=== PATIENT | male | born 1935 | race Caucasian/White ===

== ENCOUNTER 2018-03-27 11:38 | Observation (INO) ==
[2018-03-27] MEDS ORDERED: Isovue-370 500 ML INFUS..BTL IV ONE (12:28)
--- NOTE | 2018-03-27 12:40 | Emergency Department Note ---
Disposition Clinical Impression: Abdominal pain Qualifiers: Abdominal location: generalized Qualified Code(s): R10.84 - Generalized abdominal pain Disposition: Admitted As Inpatient Referrals: Kelvin Gregg DO [Primary Care Provider] - Forms: ED Satisfaction Letter, Work/School Release General Adult HPI - General Chief complaint: ED Abdominal Pain Stated complaint: ABD Pain Time Seen by Provider: 03/27/18 11:51 - History of Present Illness Pain Scale: 6 - Related Data Home Medications Medication Instructions Recorded Confirmed Acetaminophen [Tylenol] 500 mg PO Q6HR 02/21/18 03/27/18 Apixaban [Eliquis] 2.5 mg PO BID 02/21/18 03/27/18 Ascorbic Acid [Vitamin C] 500 mg PO DAILY 02/21/18 03/27/18 Atorvastatin [Lipitor] 40 mg PO HS 02/21/18 03/27/18 Carvedilol [Coreg] 12.5 mg PO BID 02/21/18 03/27/18 Clopidogrel [Plavix] 75 mg PO DAILY 02/21/18 03/27/18 Cyclobenzaprine HCl 5 mg PO Q6H PRN 02/21/18 03/27/18 FLUoxetine HCl [Fluoxetine HCl] 40 mg PO QAM 02/21/18 03/27/18 FLUoxetine HCl [PROzac] 20 mg PO 1200 02/21/18 03/27/18 Furosemide [Lasix] 40 mg PO DAILY 02/21/18 03/27/18 Isosorbide DInitrate [Isosorbide 30 mg PO BID 02/21/18 03/27/18 Dinitrate] L.acidoph,Paracasei, B.lactis 1 cap PO DAILY 02/21/18 03/27/18 [Probiotic] Magnesium l-Lactate [Mag-Tab Sr] 84 mg PO BID 02/21/18 03/27/18 Methylphenidate HCl [Ritalin] 5 mg PO 1200 02/21/18 03/27/18 Methylphenidate HCl [Ritalin] 10 mg PO QAM 02/21/18 03/27/18 Multivitamin [One Daily 1 each PO DAILY 02/21/18 03/27/18 Multivitamin] Nitroglycerin [Nitrostat] 0.4 mg SL Q5MIN 02/21/18 03/27/18 Omeprazole [PriLOSEC] 20 mg PO BID 02/21/18 03/27/18 Potassium Chloride 20 meq PO BID 02/21/18 03/27/18 Quetiapine Fumarate [SEROquel] 100 mg PO HS 02/21/18 03/27/18 clonazePAM [Clonazepam] 0.5 mg PO QID 02/21/18 03/27/18 metOLazone [Zaroxolyn] 5 mg PO DAILY 02/21/18 03/27/18 Diltiazem CD (24hr) [Cardizem CD] 120 mg PO BID 03/27/18 03/27/18 Allergies Allergy/AdvReac Type Severity Reaction Status Date / Time No Known Drug Allergies Allergy none Verified 03/21/18 10:36 Past Medical History - Social History Smoking Status: Never smoker Smokeless Tobacco Status: No Alcohol use: Reports: none Drug use: Reports: none Course Vital Signs Temperature 97.9 F 03/27/18 11:43 Pulse Rate 82 03/27/18 11:43 Respiratory Rate 18 03/27/18 11:43 Blood Pressure 119/85 03/27/18 11:43 O2 Sat by Pulse Oximetry 94 03/27/18 11:43 Temperature 97.9 F 03/27/18 12:54 Pulse Rate 74 03/27/18 15:26 Respiratory Rate 16 03/27/18 15:26 Blood Pressure 138/88 03/27/18 15:26 O2 Sat by Pulse Oximetry 96 03/27/18 15:26 Oxygen Delivery Oxygen Delivery Room Air Medical Decision Making - Lab Data Result diagrams: 03/27/18 12:40 03/27/18 12:40 Lab Results 03/27/18 03/27/18 03/27/18 Range/Units 11:51 12:30 12:40 WBC 8.8 (4.3-11.1) K/mcL RBC 4.22 (4.19-5.50) M/mcL Hgb 10.6 L (12.9-16.9) g/dL Hct 34.4 L (37.5-50.1) % MCV 81.5 L (83.0-100.0) fL MCH 25.1 L (28.0-33.3) pg MCHC 30.8 L (31.6-35.5) g/dL RDW 18.3 H (11.5-14.5) % Plt Count 251 (140-400) K/mcL MPV 9.6 (9.4-12.4) fL Immature Gran % 0.5 (0-4) % Seg Neutrophils % 66.6 % Lymphocytes % 13.2 % Monocytes % 14.4 % Eosinophils % 4.8 % Basophils % 0.5 % Neutrophils # 5.9 (1.6-8.9) K/mcL Lymphocytes # 1.2 (0.6-4.6) K/mcL Monocytes # 1.3 (0.0-1.3) K/mcL Eosinophils # 0.4 (0.0-0.6) K/mcL Basophils # 0.0 (0.0-0.2) K/mcL Sodium (136-145) mEq/L Potassium (3.5-5.1) mEq/L Chloride (98-107) mEq/L Carbon Dioxide (23-29) mEq/L BUN (8-23) mg/dL Creatinine (0.70-1.30) mg/dL Est GFR ( Amer) (> 60) Est GFR (Non-Af Amer) (> 60) BUN/Creatinine Ratio (6-26) Glucose (70-105) mg/dL Calculated Osmolality (280-300) Calcium (8.6-10.3) mg/dL Total Bilirubin (0.3-1.0) mg/dL Direct Bilirubin (0.0-0.2) mg/dL Indirect Bilirubin (0.0-1.2) mg/dL AST (13-39) Units/L ALT (7-52) Units/L Alkaline Phosphatase (34-104) Units/L Serum Total Protein (6.4-8.9) g/dL Albumin (3.5-5.7) g/dL Globulin (2.4-3.5) g/dL Albumin/Globulin Ratio (1.1-2.2) Lipase (11-82) Units/L Urine Color Yellow (Yellow) Urine Clarity Clear (Clear) Urine pH 7.0 (5.0-8.0) pH Units Ur Specific [place] 1.009 L (1.010-1.025) Urine Protein Negative (Neg-Trace) mg/dL Urine Glucose (UA) Normal (Normal) mg/dL Urine Ketones Negative (Negative) mg/dL Urine Blood Negative (Negative) Urine Nitrite Negative (Negative) Urine Bilirubin Negative (Negative) Urine Urobilinogen Normal (Normal) mg/dL Ur Leukocyte Esterase Negative (Negative) Ur Culture Indicated? NO (NO) Stool Occult Bld Scrn Negative (Negative) 03/27/18 Range/Units 12:40 WBC (4.3-11.1) K/mcL RBC (4.19-5.50) M/mcL Hgb (12.9-16.9) g/dL Hct (37.5-50.1) % MCV (83.0-100.0) fL MCH (28.0-33.3) pg MCHC (31.6-35.5) g/dL RDW (11.5-14.5) % Plt Count (140-400) K/mcL MPV (9.4-12.4) fL Immature Gran % (0-4) % Seg Neutrophils % % Lymphocytes % % Monocytes % % Eosinophils % % Basophils % % Neutrophils # (1.6-8.9) K/mcL Lymphocytes # (0.6-4.6) K/mcL Monocytes # (0.0-1.3) K/mcL Eosinophils # (0.0-0.6) K/mcL Basophils # (0.0-0.2) K/mcL Sodium 140 (136-145) mEq/L Potassium 4.2 (3.5-5.1) mEq/L Chloride 106 (98-107) mEq/L Carbon Dioxide 28 (23-29) mEq/L BUN 27 H (8-23) mg/dL Creatinine 1.17 (0.70-1.30) mg/dL Est GFR ( Amer) > 60 (> 60) Est GFR (Non-Af Amer) 60 (> 60) BUN/Creatinine Ratio 23 (6-26) Glucose 89 (70-105) mg/dL Calculated Osmolality 295 (280-300) Calcium 9.4 (8.6-10.3) mg/dL Total Bilirubin 0.3 (0.3-1.0) mg/dL Direct Bilirubin 0.1 (0.0-0.2) mg/dL Indirect Bilirubin 0.2 (0.0-1.2) mg/dL AST 9 L (13-39) Units/L ALT 5 L (7-52) Units/L Alkaline Phosphatase 81 (34-104) Units/L Serum Total Protein 6.2 L (6.4-8.9) g/dL Albumin 3.7 (3.5-5.7) g/dL Globulin 2.5 (2.4-3.5) g/dL Albumin/Globulin Ratio 1.5 (1.1-2.2) Lipase 40 (11-82) Units/L Urine Color (Yellow) Urine Clarity (Clear) Urine pH (5.0-8.0) pH Units Ur Specific [place] (1.010-1.025) Urine Protein (Neg-Trace) mg/dL Urine Glucose (UA) (Normal) mg/dL Urine Ketones (Negative) mg/dL Urine Blood (Negative) Urine Nitrite (Negative) Urine Bilirubin (Negative) Urine Urobilinogen (Normal) mg/dL Ur Leukocyte Esterase (Negative) Ur Culture Indicated? (NO) Stool Occult Bld Scrn (Negative) Attestation Statement - Attestation Attestation: I examined this patient and my medical decision-making was reviewed with the Resident Physician. I agree with the documented findings, disposition and treatment plan as described except to the extent set forth below. Patient presents to the ED with chief complaint of abdominal bloating. He is brought in by a caregiver and daughter. He has been having bloating for several weeks. 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 His oncologist did not believe it was from that. He recommended to see GI. Patient has a history of cholecystitis with cholecystectomy in September. He had biliary duct dilatation on his CT scan. On examination he has not any distress. His abdomen is soft. Bowel sounds are high-pitched but present. Lungs clear. He is in no distress. Plan. We will repeat CT scan. There is no ascites noted on the other scan. Patient states he is unable to button his pants now. Reevaluate following CT. CT scan unchanged from last. Labs unremarkable. Patient will be admitted.
[2018-03-27 12:54] LABS: Basophils % 0.5 %; Eosinophils # 0.4 K/mcL (0.0-0.6); Eosinophils % 4.8 %; Hematocrit 34.4 % (37.5-50.1); Hemoglobin 10.6 g/dL (12.9-16.9); Immature Granulocytes % 0.5 % (0-4); Lymphocytes # 1.2 K/mcL (0.6-4.6); Lymphocytes % 13.2 %; Mean Corpuscular HGB Conc 30.8 g/dL (31.6-35.5); Mean Corpuscular Hemoglobin 25.1 pg (28.0-33.3); Mean Corpuscular Volume 81.5 fL (83.0-100.0); Mean Platelet Volume 9.6 fL (9.4-12.4); Monocytes # 1.3 K/mcL (0.0-1.3); Monocytes % 14.4 %; Neutrophils # 5.9 K/mcL (1.6-8.9); Platelet Count 251 K/mcL (140-400); Red Blood Count 4.22 M/mcL (4.19-5.50); Red Cell Distribution Width 18.3 % (11.5-14.5); Segmented Neutrophils % 66.6 %
[2018-03-27 13:14] LABS: Alanine Aminotransferase 5 Units/L (7-52); Albumin 3.7 g/dL (3.5-5.7); Albumin/Globulin Ratio 1.5 (1.1-2.2); Alkaline Phosphatase 81 Units/L (34-104); Aspartate Amino Transferase 9 Units/L (13-39); BUN/Creatinine Ratio 23 (6-26); Bilirubin,Direct 0.1 mg/dL (0.0-0.2); Bilirubin,Indirect 0.2 mg/dL (0.0-1.2); Bilirubin,Total 0.3 mg/dL (0.3-1.0); Blood Urea Nitrogen 27 mg/dL (8-23); Calcium 9.4 mg/dL (8.6-10.3); Carbon Dioxide 28 mEq/L (23-29); Chloride 106 mEq/L (98-107); Globulin 2.5 g/dL (2.4-3.5); Glucose 89 mg/dL (70-105); Lipase 40 Units/L (11-82); Osmolality,Calculated 295 (280-300); Potassium 4.2 mEq/L (3.5-5.1); Sodium 140 mEq/L (136-145); Total Protein 6.2 g/dL (6.4-8.9); eGFR For African Americans > 60 (> 60); eGFR For Non-African Americans 60 (> 60)
--- NOTE | 2018-03-27 14:02 | Emergency Department Note ---
Disposition Clinical Impression: History of kidney cancer Abdominal pain Qualifiers: Abdominal location: generalized Qualified Code(s): R10.84 - Generalized abdominal pain Disposition: Admitted As Inpatient Condition: Fair Referrals: Kelvin Gregg DO [Primary Care Provider] - Time of Disposition: 17:43 Abdominal Pain HPI - General Chief Complaint: ED Abdominal Pain Stated Complaint: ABD Pain Time Seen by Provider: 03/27/18 11:51 Nursing Notes Reviewed: Yes Vital Signs Reviewed: Yes - History of Present Illness HPI Narrative: Several month history of abdominal discomfort. Describes it as a burning sensation. No radiation. Also complaining of a 2 day history of abdominal distention. Denies any nausea or vomiting. Pain Scale: 6 - Related Data Home Medications Medication Instructions Recorded Confirmed Acetaminophen [Tylenol] 500 mg PO Q6HR 02/21/18 03/27/18 Apixaban [Eliquis] 2.5 mg PO BID 02/21/18 03/27/18 Ascorbic Acid [Vitamin C] 500 mg PO DAILY 02/21/18 03/27/18 Atorvastatin [Lipitor] 40 mg PO HS 02/21/18 03/27/18 Carvedilol [Coreg] 12.5 mg PO BID 02/21/18 03/27/18 Clopidogrel [Plavix] 75 mg PO DAILY 02/21/18 03/27/18 Cyclobenzaprine HCl 5 mg PO Q6H PRN 02/21/18 03/27/18 FLUoxetine HCl [Fluoxetine HCl] 40 mg PO QAM 02/21/18 03/27/18 FLUoxetine HCl [PROzac] 20 mg PO 1200 02/21/18 03/27/18 Furosemide [Lasix] 40 mg PO DAILY 02/21/18 03/27/18 Isosorbide DInitrate [Isosorbide 30 mg PO BID 02/21/18 03/27/18 Dinitrate] L.acidoph,Paracasei, B.lactis 1 cap PO DAILY 02/21/18 03/27/18 [Probiotic] Magnesium l-Lactate [Mag-Tab Sr] 84 mg PO BID 02/21/18 03/27/18 Methylphenidate HCl [Ritalin] 5 mg PO 1200 02/21/18 03/27/18 Methylphenidate HCl [Ritalin] 10 mg PO QAM 02/21/18 03/27/18 Multivitamin [One Daily 1 each PO DAILY 02/21/18 03/27/18 Multivitamin] Nitroglycerin [Nitrostat] 0.4 mg SL Q5MIN 02/21/18 03/27/18 Omeprazole [PriLOSEC] 20 mg PO BID 02/21/18 03/27/18 Potassium Chloride 20 meq PO BID 02/21/18 03/27/18 Quetiapine Fumarate [SEROquel] 100 mg PO HS 02/21/18 03/27/18 clonazePAM [Clonazepam] 0.5 mg PO QID 02/21/18 03/27/18 metOLazone [Zaroxolyn] 5 mg PO DAILY 02/21/18 03/27/18 Diltiazem CD (24hr) [Cardizem CD] 120 mg PO BID 03/27/18 03/27/18 Allergies Allergy/AdvReac Type Severity Reaction Status Date / Time No Known Drug Allergies Allergy none Verified 03/21/18 10:36 All systems ED: reviewed and negative except as stated. Constitutional: Denies: fever, chills ENT ED: Denies: congestion Cardiovascular: Denies: chest pain, syncope Respiratory: Reports: dyspnea (Stated from having to take deep breaths due to his abdominal distention.). Denies: cough Gastrointestinal: Reports: abdominal pain (Burning sensation), melena (For the past 2-3 days. Is on eliquis.). Denies: nausea, vomiting, diarrhea, hematemesis, hematochezia Genitourinary: Reports: dysuria (Burning). Denies: urgency, frequency, hematuria Musculoskeletal: Denies: back pain, neck pain Abdominal Pain PMH - Past Medical History Medical history: Reports: cancer Male Surgical History: Reports: hip replacement, IVC Filter, knee replacement - Social History Smoking status: Never smoker Alcohol use: Reports: none Drug use: Reports: none Physical Exam - General Limitations: no limitations General appearance: alert, in no apparent distress - Head Head exam: atraumatic, normocephalic, normal inspection - Eye Eye exam: Present: normal appearance, PERRL, EOMI - ENT ENT exam: normal exam, normal oropharynx, mucous membranes moist - Neck Neck exam: Present: normal inspection, full ROM, trachea midline - Chest Chest inspection: Present: normal inspection, symmetric chest wall rise - Respiratory Respiratory exam: Present: normal lung sounds bilaterally. Absent: respiratory distress, accessory muscle use - Cardiovascular Cardiovascular exam: Present: regular rate, normal rhythm, normal heart sounds - Abdominal Exam Abdominal exam: Present: soft, distention (Mild essential no fluid wave. Not taut). Absent: tenderness, organomegaly, Odom's sign, Rovsing's sign, tenderness at McBurney's Point, mass - Extremities Exam Extremities exam: Present: normal inspection, full ROM, normal capillary refill. Absent: tenderness, pedal edema - Neurological Exam Neurological exam: Present: alert, oriented X3 - Psychiatric Psychiatric exam: Present: normal affect, normal mood - Skin Skin exam: Present: warm, dry, intact, normal color. Absent: rash, cyanosis, diaphoresis Course Course Narrative: No patient presenting to emergency department complaining of a one-month history of abdominal pain. States it has been getting significantly worse. Also complaining of abdominal distention. He is refusing pain medication at this time. States that does have a history of renal cell carcinoma approximately 5-6 years ago. Recently had a CT of his abdomen due to the pain and was told that he had some lymph nodes that were concerned for metastasis. He is seeing oncology for this at this time. Patient does have some hypodense lesions in his liver. Several areas of concern for metastasis on his CT. I discussed this with oncology. They state they will follow him while here. We will admit patient to the hospital here he has precluded as well in his CT. Liver enzymes are not elevated. He is refusing pain medication at this time. States that they make him feel funny. - Consultations Consultation #1: Sierra GLORIA from oncology states that she will look over the Pt findings and offer consultation. Time: 16:19 Consultation #2: Dr Monet accepted Pt in stable condition. Time: 17:04 Vital Signs Temperature 97.9 F 03/27/18 11:43 Pulse Rate 82 03/27/18 11:43 Respiratory Rate 18 03/27/18 11:43 Blood Pressure 119/85 03/27/18 11:43 O2 Sat by Pulse Oximetry 94 03/27/18 11:43 Temperature 97.9 F 03/27/18 12:54 Pulse Rate 76 03/27/18 17:10 Respiratory Rate 18 03/27/18 17:10 Blood Pressure 145/95 03/27/18 17:10 O2 Sat by Pulse Oximetry 93 03/27/18 17:10 Oxygen Delivery Oxygen Delivery Room Air Abdominal Pain - Medical Records Medical records reviewed: Yes I reviewed the patient's medical records. - Lab Data Lab results reviewed: Yes I reviewed the patient's lab results. Result diagrams: 03/27/18 12:40 03/27/18 12:40 Lab Results 03/27/18 03/27/18 03/27/18 Range/Units 11:51 12:30 12:40 WBC 8.8 (4.3-11.1) K/mcL RBC 4.22 (4.19-5.50) M/mcL Hgb 10.6 L (12.9-16.9) g/dL Hct 34.4 L (37.5-50.1) % MCV 81.5 L (83.0-100.0) fL MCH 25.1 L (28.0-33.3) pg MCHC 30.8 L (31.6-35.5) g/dL RDW 18.3 H (11.5-14.5) % Plt Count 251 (140-400) K/mcL MPV 9.6 (9.4-12.4) fL Immature Gran % 0.5 (0-4) % Seg Neutrophils % 66.6 % Lymphocytes % 13.2 % Monocytes % 14.4 % Eosinophils % 4.8 % Basophils % 0.5 % Neutrophils # 5.9 (1.6-8.9) K/mcL Lymphocytes # 1.2 (0.6-4.6) K/mcL Monocytes # 1.3 (0.0-1.3) K/mcL Eosinophils # 0.4 (0.0-0.6) K/mcL Basophils # 0.0 (0.0-0.2) K/mcL Sodium (136-145) mEq/L Potassium (3.5-5.1) mEq/L Chloride (98-107) mEq/L Carbon Dioxide (23-29) mEq/L BUN (8-23) mg/dL Creatinine (0.70-1.30) mg/dL Est GFR ( Amer) (> 60) Est GFR (Non-Af Amer) (> 60) BUN/Creatinine Ratio (6-26) Glucose (70-105) mg/dL Calculated Osmolality (280-300) Calcium (8.6-10.3) mg/dL Total Bilirubin (0.3-1.0) mg/dL Direct Bilirubin (0.0-0.2) mg/dL Indirect Bilirubin (0.0-1.2) mg/dL AST (13-39) Units/L ALT (7-52) Units/L Alkaline Phosphatase (34-104) Units/L Serum Total Protein (6.4-8.9) g/dL Albumin (3.5-5.7) g/dL Globulin (2.4-3.5) g/dL Albumin/Globulin Ratio (1.1-2.2) Lipase (11-82) Units/L Urine Color Yellow (Yellow) Urine Clarity Clear (Clear) Urine pH 7.0 (5.0-8.0) pH Units Ur Specific [place] 1.009 L (1.010-1.025) Urine Protein Negative (Neg-Trace) mg/dL Urine Glucose (UA) Normal (Normal) mg/dL Urine Ketones Negative (Negative) mg/dL Urine Blood Negative (Negative) Urine Nitrite Negative (Negative) Urine Bilirubin Negative (Negative) Urine Urobilinogen Normal (Normal) mg/dL Ur Leukocyte Esterase Negative (Negative) Ur Culture Indicated? NO (NO) Stool Occult Bld Scrn Negative (Negative) 03/27/18 Range/Units 12:40 WBC (4.3-11.1) K/mcL RBC (4.19-5.50) M/mcL Hgb (12.9-16.9) g/dL Hct (37.5-50.1) % MCV (83.0-100.0) fL MCH (28.0-33.3) pg MCHC (31.6-35.5) g/dL RDW (11.5-14.5) % Plt Count (140-400) K/mcL MPV (9.4-12.4) fL Immature Gran % (0-4) % Seg Neutrophils % % Lymphocytes % % Monocytes % % Eosinophils % % Basophils % % Neutrophils # (1.6-8.9) K/mcL Lymphocytes # (0.6-4.6) K/mcL Monocytes # (0.0-1.3) K/mcL Eosinophils # (0.0-0.6) K/mcL Basophils # (0.0-0.2) K/mcL Sodium 140 (136-145) mEq/L Potassium 4.2 (3.5-5.1) mEq/L Chloride 106 (98-107) mEq/L Carbon Dioxide 28 (23-29) mEq/L BUN 27 H (8-23) mg/dL Creatinine 1.17 (0.70-1.30) mg/dL Est GFR ( Amer) > 60 (> 60) Est GFR (Non-Af Amer) 60 (> 60) BUN/Creatinine Ratio 23 (6-26) Glucose 89 (70-105) mg/dL Calculated Osmolality 295 (280-300) Calcium 9.4 (8.6-10.3) mg/dL Total Bilirubin 0.3 (0.3-1.0) mg/dL Direct Bilirubin 0.1 (0.0-0.2) mg/dL Indirect Bilirubin 0.2 (0.0-1.2) mg/dL AST 9 L (13-39) Units/L ALT 5 L (7-52) Units/L Alkaline Phosphatase 81 (34-104) Units/L Serum Total Protein 6.2 L (6.4-8.9) g/dL Albumin 3.7 (3.5-5.7) g/dL Globulin 2.5 (2.4-3.5) g/dL Albumin/Globulin Ratio 1.5 (1.1-2.2) Lipase 40 (11-82) Units/L Urine Color (Yellow) Urine Clarity (Clear) Urine pH (5.0-8.0) pH Units Ur Specific [place] (1.010-1.025) Urine Protein (Neg-Trace) mg/dL Urine Glucose (UA) (Normal) mg/dL Urine Ketones (Negative) mg/dL Urine Blood (Negative) Urine Nitrite (Negative) Urine Bilirubin (Negative) Urine Urobilinogen (Normal) mg/dL Ur Leukocyte Esterase (Negative) Ur Culture Indicated? (NO) Stool Occult Bld Scrn (Negative) - Radiology Data Radiology results reviewed: Yes I reviewed the patient's radiology results. Abdomen/Pelvis CT 03/27/18 12:27 IMPRESSION: No acute intrathoracic nor abdominopelvic abnormality. Trace free fluid in the pelvis. Colonic diverticulosis without radiographic evidence of active inflammation. Stable enlarged aortocaval and periceliac lymph nodes D/ / Coty Claudio Cha, MD / Coty Claudio Cha, MD Interpreting Provider: Coty Claudio Cha, MD Chest CTA 03/27/18 12:28 IMPRESSION: No acute intrathoracic nor abdominopelvic abnormality. Trace free fluid in the pelvis. Colonic diverticulosis without radiographic evidence of active inflammation. Stable enlarged aortocaval and periceliac lymph nodes D/ / Coty Claudio Cha, MD / Coty Claudio Cha, MD Interpreting Provider: Coty Claudio Cha, MD - EKG Data EKG attestation: Yes I reviewed and interpreted this EKG. EKG results narrative: Normal sinus rhythm at a rate of 79. ND interval is 174. QRS durationis 98. QT is 373. QTC is 407. No signs of acute ischemia. No previous EKG to compare to.
[2018-03-27 14:04] LABS: Bilirubin,Urine Negative (Negative); Blood,Urine Negative (Negative); Clarity,Urine Clear (Clear); Color,Urine Yellow (Yellow); Glucose,Urine (UA) Normal (Normal); Ketones,Urine Negative (Negative); Leukocyte Esterase,Urine Negative (Negative); Nitrite,Urine Negative (Negative); Protein,Urine Negative (Neg-Trace); Specific Gravity,Urine 1.009 (1.010-1.025); Urobilinogen,Urine Normal (Normal)
--- NOTE | 2018-03-27 17:50 | Internal Med History&Physical ---
Date of Encounter: 03/27/18 Time of Encounter: 17:45 Internal Medicine - H&P: HPI Chief complaint: abd pain Admitted From: Emergency Dept Plans for Post Hospital Care: Home History of present illness: Mr. Leger is a 83 year old male Patient with history of renal cell carcinoma about 6 years ago has developed recurrence with lymph node metastases. Followed by oncology patient also has history of chronic back pain, atrial fibrillation, hypertension, pulmonary embolism with IVC filter. Patient has has chronic abdominal pain for more than a month with some bloating was seen by oncology . concern the patient may need a GI evaluation since it might not be related to the renal cell carcinoma recurrence. Repeat CT of the abdomen in the emergency room was unchanged from previous recent studies CT of the abdomen has some diverticulosis no diverticulitis patient will be admitted will consult GI for further evaluation. Exam is unremarkable abdomen is soft mild tenderness. Patient has had cholecystectomy Past Med Surg Social Fam HX - Past Medical History Medical history: cancer, hyperlipidemia, hypertension - Past Surgical History Surgical History: cholecystectomy - Social History Smoking Status: Never smoker Smokeless Tobacco Status: No Alcohol use: none Drug use: none Internal Medicine - H&P: Meds Acetaminophen [Tylenol] 500 mg PO Q6HR 02/21/18 [History] Apixaban [Eliquis] 2.5 mg PO BID 02/21/18 [History] Ascorbic Acid [Vitamin C] 500 mg PO DAILY 02/21/18 [History] Atorvastatin [Lipitor] 40 mg PO HS 02/21/18 [History] Carvedilol [Coreg] 12.5 mg PO BID 02/21/18 [History] Clopidogrel [Plavix] 75 mg PO DAILY 02/21/18 [History] Cyclobenzaprine HCl 5 mg PO Q6H PRN 02/21/18 [History] FLUoxetine HCl [Fluoxetine HCl] 40 mg PO QAM 02/21/18 [History] FLUoxetine HCl [PROzac] 20 mg PO 1200 02/21/18 [History] Furosemide [Lasix] 40 mg PO DAILY 02/21/18 [History] Isosorbide DInitrate [Isosorbide Dinitrate] 30 mg PO BID 02/21/18 [History] L.acidoph,Paracasei, B.lactis [Probiotic] 1 cap PO DAILY 02/21/18 [History] Magnesium l-Lactate [Mag-Tab Sr] 84 mg PO BID 02/21/18 [History] Methylphenidate HCl [Ritalin] 5 mg PO 1200 02/21/18 [History] Methylphenidate HCl [Ritalin] 10 mg PO QAM 02/21/18 [History] Multivitamin [One Daily Multivitamin] 1 each PO DAILY 02/21/18 [History] Nitroglycerin [Nitrostat] 0.4 mg SL Q5MIN 02/21/18 [History] Omeprazole [PriLOSEC] 20 mg PO BID 02/21/18 [History] Potassium Chloride 20 meq PO BID 02/21/18 [History] Quetiapine Fumarate [SEROquel] 100 mg PO HS 02/21/18 [History] clonazePAM [Clonazepam] 0.5 mg PO QID 02/21/18 [History] metOLazone [Zaroxolyn] 5 mg PO DAILY 02/21/18 [History] Diltiazem CD (24hr) [Cardizem CD] 120 mg PO BID 03/27/18 [History] 3 Allergy/AdvReac Type Severity Reaction Status Date / Time No Known Drug Allergies Allergy none Verified 03/21/18 10:36 All Systems PM: A 10-system review of systems was performed and is negative for pertinent findings except as documented above in the HPI. - Constitutional Vitals: Temp Pulse Resp BP Pulse Ox 97.9 F 76 18 145/95 93 03/27/18 12:54 03/27/18 17:10 03/27/18 17:10 03/27/18 17:10 03/27/18 17:10 - Head Head exam: Present: atraumatic, normocephalic - Eye Eye exam: Present: PERRL, conjuntiva pink, sclera anicteric Pupils: Present: PERRL - Neck Neck exam general surgery: Present: supple, trachea midline. Absent: lymphadenopathy - Respiratory Respiratory exam: Present: CTAB. Absent: accessory muscle use, rales, rhonchi, wheezes - Cardiovascular Cardiovascular exam: Present: RRR, +S1, +S2. Absent: diastolic murmur, gallop, rubs, systolic murmur - GI/Abdominal GI/Abdominal exam: Present: distended, soft, tenderness Internal Med - H&P Results - Labs CBC & Chem 7: 03/27/18 12:40 03/27/18 12:40 - Assessment and plan (1) Chronic back pain Current Visit: Yes Status: Acute Assessment and plan: Chronic resume home medication Qualifiers: Back pain location: low back pain Back pain laterality: unspecified Sciatica presence: without sciatica Qualified Code(s): M54.5 - Low back pain; G89.29 - Other chronic pain (2) HTN (hypertension) Current Visit: Yes Status: Chronic Assessment and plan: Chronic blood pressure well controlled Qualifiers: Hypertension type: essential hypertension Qualified Code(s): I10 - Essential (primary) hypertension (3) Abdominal pain Current Visit: Yes Status: Acute Assessment and plan: Generalized abdominal pain repeat CT of the abdomen unchanged from recent CT of the abdomen no diverticulitis we will consult GI for further evaluation Qualifiers: Abdominal location: generalized Qualified Code(s): R10.84 - Generalized abdominal pain (4) History of kidney cancer Current Visit: Yes Status: Acute Assessment and plan: Recurrent being followed by oncologist - Time Spent With Patient Total time spent is greater than 50% in coordination of care (as documented) at patient's floor/unit and/or counseling patient:
[2018-03-27] MEDS ORDERED: Naloxone 0.4 MG/ML INJ IVP PRN (17:55)
[2018-03-27] MEDS ORDERED: traMADol 50 MG TABLET PO PRN (17:55)
[2018-03-27] MEDS: clonazePAM 0.5 MG TABLET PO SCH (22:44)
[2018-03-27] MEDS: Diltiazem CD (24hr) 120 MG CAPSULE PO SCH (22:45)
[2018-03-27] MEDS: Apixaban 2.5 MG TABLET PO SCH (22:45)
[2018-03-27] MEDS: (Magnesium L-Lactate [Mag-Tab Sr] 84 MG) PO SCH (22:46)
[2018-03-27] MEDS: 0.9 % Sodium Chloride 1,000 ML IVC SCH (22:48)
[2018-03-28 00:50] LABS: Hematocrit 33.4 % (37.5-50.1); Hemoglobin 10.4 g/dL (12.9-16.9); Mean Corpuscular HGB Conc 31.1 g/dL (31.6-35.5); Mean Corpuscular Hemoglobin 25.1 pg (28.0-33.3); Mean Corpuscular Volume 80.7 fL (83.0-100.0); Mean Platelet Volume 9.5 fL (9.4-12.4); Platelet Count 248 K/mcL (140-400); Red Blood Count 4.14 M/mcL (4.19-5.50); Red Cell Distribution Width 18.5 % (11.5-14.5)
[2018-03-28 01:08] LABS: Alanine Aminotransferase 4 Units/L (7-52); Albumin 3.4 g/dL (3.5-5.7); Albumin/Globulin Ratio 1.4 (1.1-2.2); Alkaline Phosphatase 76 Units/L (34-104); Aspartate Amino Transferase 8 Units/L (13-39); BUN/Creatinine Ratio 21 (6-26); Bilirubin,Total 0.4 mg/dL (0.3-1.0); Blood Urea Nitrogen 23 mg/dL (8-23); Calcium 9.2 mg/dL (8.6-10.3); Carbon Dioxide 22 mEq/L (23-29); Chloride 105 mEq/L (98-107); Chol/HDL Ratio 3.1 (0-4.9); Cholesterol 122 mg/dL (< 200); Globulin 2.5 g/dL (2.4-3.5); Glucose 174 mg/dL (70-105); HDL Cholesterol 40 mg/dL (40-59); LDL Cholesterol,Calculated 44 mg/dL (0-99); Magnesium 1.7 mg/dL (1.6-2.6); Osmolality,Calculated 294 (280-300); Potassium 4.2 mEq/L (3.5-5.1); Sodium 138 mEq/L (136-145); Total Protein 5.9 g/dL (6.4-8.9); Triglycerides 191 mg/dL (< 150); eGFR For African Americans > 60 (> 60); eGFR For Non-African Americans > 60 (> 60)
[2018-03-28] MEDS: Lactobacillus 1 EACH CAP.SPRINK PO SCH (08:57)
[2018-03-28] MEDS: Methylphenidate HCl 10 MG TABLET PO SCH (08:57)
[2018-03-28] MEDS: Ascorbic Acid 500 MG TABLET PO SCH (08:57)
[2018-03-28] MEDS: Multivit/Ca/Min/Fe/FA 1 TAB TABLET PO SCH (08:57)
[2018-03-28] MEDS: metOLazone 5 MG TABLET PO SCH (08:57)
[2018-03-28] MEDS: clonazePAM 0.5 MG TABLET PO SCH ×4 (08:58→20:31)
[2018-03-28] MEDS: Diltiazem CD (24hr) 120 MG CAPSULE PO SCH ×2 (08:58→20:31)
[2018-03-28] MEDS: Apixaban 2.5 MG TABLET PO SCH ×2 (08:58→20:31)
[2018-03-28] MEDS ORDERED: Furosemide 40 MG TABLET PO SCH (09:00)
[2018-03-28] MEDS: (Magnesium L-Lactate [Mag-Tab Sr] 84 MG) PO SCH ×2 (09:01→20:31)
[2018-03-28] MEDS: 0.9 % Sodium Chloride 1,000 ML IVC SCH (10:17)
[2018-03-28] MEDS: FLUoxetine 20 MG CAPSULE PO SCH ×2 (10:25→13:03)
--- NOTE | 2018-03-28 11:33 | Gastroenterology Consult Note ---
Date of Encounter: 03/28/18 Time of Encounter: 10:30 - Assessment and plan (1) Abdominal pain Current Visit: Yes Status: Acute Assessment and plan: Continue PPI and plan for EGD today to r/o esophagitis, gastritis, duodenitis, PUD, MW tear, or AVM. Keep patinet NPO. Patient educated regarding lifestyle modifications including: (1) avoidance of foods that may precipitate reflux (eg, coffee, alcohol, chocolate, fatty foods) . (2) avoidance of acidic foods that may precipitate heartburn (eg, citrus, carbonated drinks, spicy foods). (3) adoption of behaviors that may reduce esophageal acid exposure (see weight loss, smoking cessation, raising the head of the bed, and avoiding recumbency for 2-3 hours after meals). Qualifiers: Abdominal location: generalized Qualified Code(s): R10.84 - Generalized abdominal pain (2) History of kidney cancer Current Visit: Yes Status: Acute - Time Spent With Patient Total time spent is greater than 50% in coordination of care (as documented) at patient's floor/unit and/or counseling patient: GI History of Present Illness - Data of Consult Patient: new to practice Consult date: 03/28/18 Requesting Physician: Coleen Galvez - Consult Narrative Reason for consult: Abdominal pain History of present illness: Mr. Leger is a 83 year old male with PMHx of renal cell carcinoma about 6 years ago has developed recurrence with lymph node metastases, Afib, HTN, PE with IVC filter who presented to the ED with one month history of abdominal pain. Recently had a CT A/P on 03/14 due to the pain and was told that he had some lymph nodes that were concerned for metastasis. CT A/P shows diverticulosis, 7 mm benign cyst in right hepatic dome, previously noted 9mm hypodensity in right hepatic lobe no seen. He reports epigastric pain that is not controlled. He denies fever, chills, chest pain, cough, nausea, vomiting, diarrhea, hematemsis , melena, or hematochezia. Procedures: None NSAIDs: None Anticoagulation: Plavix, Eliquis Past Med Surg Social Fam HX - Past Medical History Medical history: cancer, hyperlipidemia, hypertension - Past Surgical History Surgical History: cholecystectomy - Social History Smoking Status: Never smoker Smokeless Tobacco Status: No Alcohol use: none Drug use: none - Family History Father Living Status: Hx Family Neurologic Disorders: Yes (Stroke) Brother Hx Family Cancer: Yes (Prostate) - Gastrointestinal Gastrointestinal: Present: as per HPI - Constitutional Constitutional: as per HPI - EENT Eyes: as per HPI Ears: Present: as per HPI Nose, mouth and throat: Present: as per HPI - Cardiovascular Cardiovascular ROS: Present: as per HPI - Respiratory Respiratory IM: Present: as per HPI - Genitourinary Genitourinary: Absent: change in color, Urinary frequency - Neurological ROS Neurological GI: Present: as per HPI - Hematologic/Lymphatic Hematologic/Lymphatic pediatric: Present: as per HPI - Musculoskeletal Musculoskeletal ROS GI: Present: as per HPI - Integumentary Integumentary GI: Present: as per HPI - Psychiatric ROS Psychiatric GI: Present: as per HPI - Endocrine Endocrine IM: Present: as per HPI - Constitutional Vitals: Temp Pulse Resp BP Pulse Ox 97.8 F 87 18 120/80 95 03/28/18 10:34 03/28/18 10:34 03/28/18 10:34 03/28/18 10:34 03/28/18 10:34 General appearance: Present: cooperative, A&O X 3, no acute distress, answers questions appropriately - Head Head exam: Present: atraumatic, normocephalic - Eye Eye exam: Present: normal appearance, sclera anicteric - ENT ENT exam: Present: mucous membranes dry - Neck Neck exam general surgery: Present: normal inspection, trachea midline - Respiratory Respiratory exam: Present: CTAB. Absent: rales, rhonchi - Cardiovascular Cardiovascular exam: Present: RRR, +S1, +S2 - GI/Abdominal GI/Abdominal exam: Present: soft, tenderness (epigastric), no peritoneal signs. Absent: distended, firm, guarding - Rectal Rectal exam: Present: deferred - Extremities Exam Extremities exam: Present: warm - Neurological Exam Neurological exam: Present: no focal deficits - Psychiatric Psychiatric exam: Present: normal affect, normal mood - Skin Skin exam: Present: dry, intact, normal color, warm Results - Labs CBC & Chem 7: 03/28/18 00:36 03/28/18 00:36 Labs: Last Result Calcium 9.2 mg/dL (8.6-10.3) 03/28/18 00:36 Troponin I < 0.03 ng/mL (< 0.04) 03/28/18 05:35 Triglycerides 191 mg/dL (< 150) H 03/28/18 00:36 Entire Visit Hgb 10.4 g/dL (12.9-16.9) L 03/28/18 00:36 Hct 33.4 % (37.5-50.1) L 03/28/18 00:36 Total Bilirubin 0.4 mg/dL (0.3-1.0) 03/28/18 00:36 AST 8 Units/L (13-39) L 03/28/18 00:36 ALT 4 Units/L (7-52) L 03/28/18 00:36 Lipase 40 Units/L (11-82) 03/27/18 12:40 Consult Discharge Plan - Plan Referrals: Kelvin Gregg DO [Primary Care Provider] -
--- NOTE | 2018-03-28 13:04 | Internal Med Progress Note ---
Date of Encounter: 03/28/18 Time of Encounter: 13:00 - Assessment and plan (1) Abdominal pain Current Visit: Yes Status: Acute Assessment and plan: presented with ABD since 09/2017 and is acute worsening over the last 2-[address] showed colonic diverticulosis without radiographic evidence of active inflammation. Etiology unknown at this time. No hematochezia, no melena , no constipation or loose stool. Evaluated by GI who is planning an EGD. NPO at midnight. Further recommendations pending EGD Qualifiers: Abdominal location: generalized Qualified Code(s): R10.84 - Generalized abdominal pain (2) Chronic back pain Current Visit: Yes Status: Acute Assessment and plan: per hx. Cont home Flexeril/tramadol. Qualifiers: Back pain location: low back pain Back pain laterality: unspecified Sciatica presence: without sciatica Qualified Code(s): M54.5 - Low back pain; G89.29 - Other chronic pain (3) History of kidney cancer Current Visit: Yes Status: Acute Assessment and plan: per hx. Can follow up outpatient as previously planned (4) HTN (hypertension) Current Visit: Yes Status: Chronic Assessment and plan: per hx. BP controlled. Cont home BP medication Qualifiers: Hypertension type: essential hypertension Qualified Code(s): I10 - Essential (primary) hypertension (5) DVT prophylaxis Current Visit: Yes Status: Acute Assessment and plan: SCD - Time Spent With Patient Total time spent is greater than 50% in coordination of care (as documented) at patient's floor/unit and/or counseling patient: - Subjective Interval history: Seen and examined at bedside. Patient is new to me, information obtained from chart review and patient report. Sitting up in bed eating breakfast. Still has some abdominal pain and bloating but no change since arrival. No loose stool or constipation. Tolerating regular diet. - Constitutional Vitals: Temp Pulse Resp BP Pulse Ox 97.8 F 87 18 120/80 95 03/28/18 10:34 03/28/18 10:34 03/28/18 10:34 03/28/18 10:34 03/28/18 10:34 General appearance: Present: A&O X 3, morbidly obese, pleasant, no acute distress - Head Head exam: Present: atraumatic, normocephalic - Eye Eye exam: Present: PERRL, conjuntiva pink, sclera anicteric Pupils: Present: PERRL - Neck Neck exam general surgery: Present: supple, trachea midline. Absent: lymphadenopathy - Respiratory Respiratory exam: Present: CTAB. Absent: accessory muscle use, rales, rhonchi, wheezes - Cardiovascular Cardiovascular exam: Present: RRR, +S1, +S2. Absent: diastolic murmur, gallop, rubs, systolic murmur - GI/Abdominal GI/Abdominal exam: Present: normal bowel sounds, soft, no peritoneal signs. Absent: distended, tenderness - Extremities Exam Extremities exam: Present: warm, radial pulses palpable and symmetrical. Absent : calf tenderness, cyanotic, pedal edema - Neurological Exam Neurological exam: Present: CN II-XII intact, oriented X3, no focal deficits. Absent: pronater drift, facial droop, speech deficit - Skin Skin exam: Present: dry, intact Internal Medicine: Result - Labs CBC & Chem 7: 03/28/18 00:36 03/28/18 00:36 Labs: Short CBC 03/28/18 Range/Units 00:36 WBC 9.2 (4.3-11.1) K/mcL Hgb 10.4 L (12.9-16.9) g/dL Hct 33.4 L (37.5-50.1) % Plt Count 248 (140-400) K/mcL BMP 03/28/18 00:36 Sodium 138 Potassium 4.2 Chloride 105 Carbon Dioxide 22 L BUN 23 Creatinine 1.11 Glucose 174 H Calcium 9.2 Cardiac Enzymes 03/27/18 03/28/18 03/28/18 Range/Units 18:36 00:36 05:35 Troponin I < 0.03 < 0.03 < 0.03 (< 0.04) ng/mL Liver Function 03/28/18 Range/Units 00:36 Total Bilirubin 0.4 (0.3-1.0) mg/dL AST 8 L (13-39) Units/L ALT 4 L (7-52) Units/L Alkaline Phosphatase 76 (34-104) Units/L Albumin 3.4 L (3.5-5.7) g/dL Consult Discharge Plan - Plan Referrals: Kelvin Gregg DO [Primary Care Provider] -
[2018-03-28] MEDS: Methylphenidate HCl 5 MG TABLET PO SCH (14:03)
[2018-03-28] MEDS: Acetaminophen 325 MG TABLET PO PRN (16:29)
--- NOTE | 2018-03-28 18:26 | Electrocardiograph Report ---
[place] [id number] Test Date: 2018-03-27 Pat Name: Miguel Angel Leger Department: 104 Room: 3A24 Gender: M Intelligence Director: AM : 1935 Requested By: Kika Eduardo Order Number: [id number] Reading MD: Bigg Davidson Measurements Intervals [place] Rate: 79 P: 81 MA: 174 QRS: -46 QRSD: 98 T: 51 QT: 373 QTc: 407 Interpretive Statements SINUS RHYTHM MARKED LEFT AXIS DEVIATION BASELINE ARTIFACT Electronically Signed On 03-28-2018 18:24:57 EDT by Bigg Davidson
[2018-03-29] MEDS ORDERED: 0.9 % Sodium Chloride 1,000 ML IVC SCH (00:01)
--- NOTE | 2018-03-29 07:27 | Anesthesia Evaluation PreOp ---
Date of Encounter: 03/29/18 Time of Encounter: 07:25 - Past History Planned Operation: EGD Cardiac History: Denies any Significant Hx, HTN, Hyperlipidemia, Arrhythmia (hx AF), Other (Pt reports hx of CPR 10 year ago 2ndry to respiratory problems) Pulmonary History: Denies Any Significant HX, ALLYN Dx (BIPAP at night at home), Other (Hx PE with lilly filter) FLEET SALES MANAGER History: Denies Any Significant HX Other Medical History: Renal (CA with mets) Anesthesia History: No Prior Anesthetic Complications, Past Anesthesia (GB) Alcohol Use: none Drug use: none Medications and Allergies Acetaminophen [Tylenol] 500 mg PO Q6HR 02/21/18 [History] Apixaban [Eliquis] 2.5 mg PO BID 02/21/18 [History] Ascorbic Acid [Vitamin C] 500 mg PO DAILY 02/21/18 [History] Atorvastatin [Lipitor] 40 mg PO HS 02/21/18 [History] Carvedilol [Coreg] 12.5 mg PO BID 02/21/18 [History] Clopidogrel [Plavix] 75 mg PO DAILY 02/21/18 [History] Cyclobenzaprine HCl 5 mg PO Q6H PRN 02/21/18 [History] FLUoxetine HCl [Fluoxetine HCl] 40 mg PO QAM 02/21/18 [History] FLUoxetine HCl [PROzac] 20 mg PO 1200 02/21/18 [History] Furosemide [Lasix] 40 mg PO DAILY 02/21/18 [History] Isosorbide DInitrate [Isosorbide Dinitrate] 30 mg PO BID 02/21/18 [History] L.acidoph,Paracasei, B.lactis [Probiotic] 1 cap PO DAILY 02/21/18 [History] Magnesium l-Lactate [Mag-Tab Sr] 84 mg PO BID 02/21/18 [History] Methylphenidate HCl [Ritalin] 5 mg PO 1200 02/21/18 [History] Methylphenidate HCl [Ritalin] 10 mg PO QAM 02/21/18 [History] Multivitamin [One Daily Multivitamin] 1 each PO DAILY 02/21/18 [History] Nitroglycerin [Nitrostat] 0.4 mg SL Q5MIN 02/21/18 [History] Omeprazole [PriLOSEC] 20 mg PO BID 02/21/18 [History] Potassium Chloride 20 meq PO BID 02/21/18 [History] Quetiapine Fumarate [SEROquel] 100 mg PO HS 02/21/18 [History] clonazePAM [Clonazepam] 0.5 mg PO QID 02/21/18 [History] metOLazone [Zaroxolyn] 5 mg PO DAILY 02/21/18 [History] Diltiazem CD (24hr) [Cardizem CD] 120 mg PO BID 03/27/18 [History] 3 Allergy/AdvReac Type Severity Reaction Status Date / Time No Known Drug Allergies Allergy none Verified 03/21/18 10:36 - Meds/Allergy Pre-op Review Medications Reviewed: Yes Allergies Reviewed: Yes Beta Blockers on Current Med List: Yes If Beta Blockers taken, Date/Time (Last Dose taken): 16:27 03/28/2018 Anesthesia Results - Labs 03/28/18 00:36 03/28/18 00:36 - Imaging EKG: report reviewed (SINUS RHYTHM MARKED LEFT AXIS DEVIATION) Anesthesia Exam Vital Signs/O2 Sat, Most Current Temp Pulse Resp BP Pulse Ox 98.2 F 80 12 127/80 94 03/29/18 12:00 03/29/18 12:00 03/29/18 12:00 03/29/18 12:00 03/29/18 12:00 Blood glucose: 92 NPO (# of Hours): > 8 hrs Pain Scale: 0 Pain Scale Used: Numeric (1 - 10) - HEENT Pupil (Motor): Pupils equal, EOMI Mallampati: IV Teeth: Missing, Poor dentition Oral Opening: Greater than 3 - FLEET SALES MANAGER LOC: Oriented FLEET SALES MANAGER Motor: Normal RUE, Normal LUE, Normal RLE, Normal LLE, Normal Face FLEET SALES MANAGER Sensory: Normal: RUE, LUE, RLE, LLE, Face - Cardiac Rhythm: Regular Murmur: None JVD: No Carotid Bruit: No - Pulmonary Breath Sounds: bilateral Clear Respiratory Effort: Symmetrical Anesthesia Assess/Plan ASA Score: 4 Modified [place] Scale for Level of Consciousness: Cooperative, oriented, and tranquil Anesthetic Plan: MAC Autologous Blood: Yes Monitoring Plan: Standard Monitors Recovery Plan: Other
[2018-03-29] MEDS: clonazePAM 0.5 MG TABLET PO SCH ×2 (10:17→14:17)
[2018-03-29] MEDS: Apixaban 2.5 MG TABLET PO SCH (10:17)
[2018-03-29] MEDS: (Magnesium L-Lactate [Mag-Tab Sr] 84 MG) PO SCH (10:17)
[2018-03-29] MEDS: Lactobacillus 1 EACH CAP.SPRINK PO SCH (10:17)
[2018-03-29] MEDS: FLUoxetine 20 MG CAPSULE PO SCH ×2 (10:17→14:17)
[2018-03-29] MEDS: Methylphenidate HCl 10 MG TABLET PO SCH (10:18)
[2018-03-29] MEDS: Ascorbic Acid 500 MG TABLET PO SCH (10:18)
[2018-03-29] MEDS: Multivit/Ca/Min/Fe/FA 1 TAB TABLET PO SCH (10:18)
[2018-03-29] MEDS: metOLazone 5 MG TABLET PO SCH (10:18)
[2018-03-29] MEDS: Diltiazem CD (24hr) 120 MG CAPSULE PO SCH (10:24)
[2018-03-29] MEDS ORDERED: *HR* Propofol 200 MG/20 ML VIAL IVP ONE (11:25)
[2018-03-29 13:01] VITALS: BP 154/99
--- NOTE | 2018-03-29 14:14 | Discharge Summary ---
Date of Encounter: 03/29/18 Time of Encounter: 14:14 - Discharge Diagnosis (1) Esophagitis Priority: Primary Status: Acute Assessment and Plan: presented with ABD since 09/2017 and is acute worsening over the last 2-[address] showed colonic diverticulosis without radiographic evidence of active inflammation. Denied hematochezia, no melena, no constipation or loose stool. 03/29/18 EGD showed grade a reflux esophagitis (no biopsy due to anticoagulation)and 2 cm hiatal hernia. Cont PPI, add carafate (2) Chronic back pain Priority: Secondary Status: Acute Assessment and Plan: per hx. Cont home Flexeril/tramadol. Qualifiers: Back pain location: low back pain Back pain laterality: unspecified Sciatica presence: without sciatica Qualified Code(s): M54.5 - Low back pain; G89.29 - Other chronic pain (3) History of kidney cancer Priority: Secondary Status: Acute Assessment and Plan: per hx. Can follow up outpatient as previously planned (4) HTN (hypertension) Priority: Secondary Status: Chronic Assessment and Plan: per hx. BP controlled. Cont home BP medication Qualifiers: Hypertension type: essential hypertension Qualified Code(s): I10 - Essential (primary) hypertension (5) Atrial fibrillation Priority: Secondary Status: Chronic Assessment and Plan: per hx. Rate controlled. Cont home BB, xarelto Qualifiers: Atrial fibrillation type: paroxysmal Qualified Code(s): I48.0 - Paroxysmal atrial fibrillation (6) CAD (coronary artery disease) Priority: Secondary Status: Chronic Assessment and Plan: per hx. Cont home Xarelto, Plavix, BB Qualifiers: Coronary Disease-Associated Artery/Lesion type: [place] artery [place] vs. transplanted heart: [place] heart Associated angina: without angina Qualified Code(s): I25.10 - Atherosclerotic heart disease of [place] coronary artery without angina pectoris Hospital course: Please see assessment and plan for Hospital course Discharge discussed with: patient (Seen and examined at bedside. Says he had uneventful night, slept well. He denies abdominal pain. Says he would like to go home today if EGD unremarkable. Still denies nausea vomiting or diarrhea. No constipation. Last BM yesterday evening.) - Time Spent with Patient Total time spent providing and/or coordinating discharge services: - Discharge Medications Prescriptions: Sucralfate [Carafate] 1 gm PO BID #1 oral.susp Home Medications: Acetaminophen [Tylenol] 500 mg PO Q6HR 02/21/18 [History] Apixaban [Eliquis] 2.5 mg PO BID 02/21/18 [History] Ascorbic Acid [Vitamin C] 500 mg PO DAILY 02/21/18 [History] Atorvastatin [Lipitor] 40 mg PO HS 02/21/18 [History] Carvedilol [Coreg] 12.5 mg PO BID 02/21/18 [History] Clopidogrel [Plavix] 75 mg PO DAILY 02/21/18 [History] Cyclobenzaprine HCl 5 mg PO Q6H PRN 02/21/18 [History] FLUoxetine HCl [Fluoxetine HCl] 40 mg PO QAM 02/21/18 [History] FLUoxetine HCl [Prozac] 20 mg PO 1200 02/21/18 [History] Furosemide [Lasix] 40 mg PO DAILY 02/21/18 [History] Isosorbide DInitrate [Isosorbide Dinitrate] 30 mg PO BID 02/21/18 [History] L.acidoph,Paracasei, B.lactis [Probiotic] 1 cap PO DAILY 02/21/18 [History] Magnesium l-Lactate [Mag-Tab Sr] 84 mg PO BID 02/21/18 [History] Methylphenidate HCl [Ritalin] 5 mg PO 1200 02/21/18 [History] Methylphenidate HCl [Ritalin] 10 mg PO QAM 02/21/18 [History] Multivitamin [One Daily Multivitamin] 1 each PO DAILY 02/21/18 [History] Nitroglycerin [Nitrostat] 0.4 mg SL Q5MIN 02/21/18 [History] Omeprazole [PriLOSEC] 20 mg PO BID 02/21/18 [History] Potassium Chloride 20 meq PO BID 02/21/18 [History] Quetiapine Fumarate [Seroquel] 100 mg PO HS 02/21/18 [History] clonazePAM [Clonazepam] 0.5 mg PO QID 02/21/18 [History] metOLazone [Zaroxolyn] 5 mg PO DAILY 02/21/18 [History] Diltiazem CD (24hr) [Cardizem CD] 120 mg PO BID 03/27/18 [History] Sucralfate [Carafate] 1 gm PO BID #1 oral.susp 03/29/18 [Rx] Allergies/Adverse Reactions: 3 Allergy/AdvReac Type Severity Reaction Status Date / Time No Known Drug Allergies Allergy none Verified 03/21/18 10:36 Date of admission: 03/27/18 17:26 Primary care physician: Kelvin Gregg Consults: 03/27/18 17:57 Consult to Physician [CONS] Routine Consulting Provider: Joana Mercado Reason for Consult: abd pain for about a month Time Notified: 17:58 Call Completed: No Discharging clinician: Luci Santos Anticipated date of discharge: 03/29/18 - Constitutional Vitals: Temp Pulse Resp BP Pulse Ox 98.2 F 73 16 154/99 96 03/29/18 12:51 03/29/18 12:51 03/29/18 12:51 03/29/18 12:51 03/29/18 12:51 General appearance: Present: A&O X 3, morbidly obese, pleasant, no acute distress - Head Head exam: Present: atraumatic, normocephalic - Eye Eye exam: Present: PERRL, conjuntiva pink, sclera anicteric Pupils: Present: PERRL - Neck Neck exam general surgery: Present: supple, trachea midline. Absent: lymphadenopathy - Respiratory Respiratory exam: Present: CTAB. Absent: accessory muscle use, rales, rhonchi, wheezes - Cardiovascular Cardiovascular exam: Present: RRR, +S1, +S2. Absent: diastolic murmur, gallop, rubs, systolic murmur - GI/Abdominal GI/Abdominal exam: Present: normal bowel sounds, soft, no peritoneal signs. Absent: distended, tenderness - Extremities Exam Extremities exam: Present: warm, radial pulses palpable and symmetrical. Absent : calf tenderness, cyanotic, pedal edema - Neurological Exam Neurological exam: Present: CN II-XII intact, oriented X3, no focal deficits. Absent: pronater drift, facial droop, speech deficit - Skin Skin exam: Present: dry, intact - Patient Status Disposition: Home, Self-Care Condition: Good Functional capacity at discharge: independent ambulation Overall status at discharge: patient is back to baseline - Discharge Instructions Instructions: Corrosive Esophagitis (DC), Gastroesophageal Reflux Disease (DC) , Diet for Ulcers and Gastritis (GEN), Sucralfate (By mouth) Follow Up With: Kelvin Gregg [Other] - 04/05/18 2:30 pm - Diet and Activity Activity: increase activity as tolerated Diet: advance to your usual diet
[2018-03-29] MEDS: Methylphenidate HCl 5 MG TABLET PO SCH (14:17)
--- NOTE | 2018-03-29 15:31 | Anesthesia Evaluation Post Op ---
Date of Encounter: 03/29/18 Time of Encounter: 15:31 - Vital Signs Vital Signs: Vital Signs/O2 Sat, Most Current Temp Pulse Resp BP Pulse Ox 98.2 F 73 16 154/99 96 03/29/18 12:51 03/29/18 12:51 03/29/18 12:51 03/29/18 12:51 03/29/18 12:51 - Lungs Lungs: Clear Ascult./Percussion - Airway Airway: Non-obstructed - Cardiovascular Regular Rate - Mental Status Mental Status: Alert & Oriented, Answers Appropriately - Pain Pain Scale: 0 Pain Scale used: Numeric (1 - 10) - Nausea Vomiting Nausea Vomiting: Not Present - Hydration Hydration: NPO, Has not voided - Discharge PostOp Status: Transfer Patient to floor
[2018-03-29] MEDS: Acetaminophen 325 MG TABLET PO PRN (15:47)
== END 2018-03-29 16:21 | disposition home or self-care (01) ==
LOC: EMEROO 11:38 → 3ANU 11:38
PROVIDERS: ADMIT Internal Medicine; ATTEND Internal Medicine